=== PATIENT | female | born 1960 | race Native Hawaiian/Other Pacific Islander ===

== ENCOUNTER 2016-08-20 11:42 | Outpatient (CLI) | payer OTHER ==
[2016-08-20] MEDS ORDERED: LORA1TAB17 PO (15:38)
[2016-08-20] MEDS ORDERED: LYRICA300 MG PO (15:39)
[2016-08-20] MEDS ORDERED: VALSARTAN80 MG PO (15:40)
[2016-08-20] MEDS ORDERED: METO50TA63 PO (15:42)
[2016-08-20] MEDS ORDERED: CRESTOR20 MG PO (15:42)
[2016-08-20] MEDS ORDERED: ALBU90AE13 INH (15:44)
[2016-08-21] MEDS ORDERED: HYDROCHLOROT12.5 M1 PO (03:25)
[2016-08-21] MEDS ORDERED: NEXIUM40 MG PO (03:25)
== END 2016-08-20 12:05 | disposition short-term general hospital (02) ==
LOC: AMB 11:42
DX: R44.2 Other hallucinations (principal)
CPT/HCPCS: A0425; A0428

== ENCOUNTER 2016-08-20 22:25 | Emergency (ER) | payer OTHER ==
[~2016-08-20] VITALS: Ht 160 cm; Wt 69.4 kg
[~2016-08-20 22:25] MED LIST: ALBU90AE13 INH; CRESTOR20 MG PO; LORA1TAB17 PO; LYRICA300 MG PO; METO50TA63 PO; VALSARTAN80 MG PO
[2016-08-20 22:47] LABS: PLATELET COUNT 255 K/uL (152-353)
[2016-08-20 22:55] LABS: POTASSIUM 3.2 mmol/L (3.6-5.2)
[2016-08-20 23:16] VITALS: BP 134/81; TEMP 98.7
[2016-08-21] MEDS ORDERED: NEXIUM40 MG PO (03:25)
[2016-08-21] MEDS ORDERED: HYDROCHLOROT12.5 M1 PO (03:25)
== END 2016-08-20 23:41 | disposition home or self-care (01) ==
LOC: ED 22:25
PROVIDERS: Family Medicine
DX: R56.9 Unspecified convulsions (principal); I10 Essential (primary) hypertension; R00.0 Tachycardia, unspecified
CPT/HCPCS: 80053; 85027; 93005; 96374; 96375; 99284; J2405; J3490

== ENCOUNTER 2020-10-02 10:08 | Outpatient (CLI) | payer OTHER ==
[~2020-10-02 10:08] MED LIST changes: +HYDROCHLOROT12.5 M1 PO; +NEXIUM40 MG PO
== END 2020-10-02 22:42 | disposition home or self-care (01) ==
LOC: INF 10:08
PROVIDERS: ATTEND Internal Medicine
DX: Z23 Encounter for immunization (principal)
CPT/HCPCS: 96372

== ENCOUNTER 2020-10-24 10:14 | Outpatient (CLI) | payer OTHER | END 2020-10-24 19:36 | disposition home or self-care (01) | LOC: INF 10:14 | PROVIDERS: ATTEND Internal Medicine | DX: Z23 Encounter for immunization (principal) | CPT/HCPCS: 96372 ==